=== PATIENT | male | born 1960 | race Caucasian/White ===

== ENCOUNTER 2017-09-26 13:11 | Outpatient (CLI) | payer OTHER ==
[2017-09-26 14:16] LABS: Hematocrit 41.9 % (42.0-52.0); Mean Platelet Volume 7.7 fL (7.4-10.4); Red Blood Cell (RBC) Count 4.35 mill/uL (4.70-6.10); White Blood Cell (WBC) Count 7.8 thou/uL (4.8-10.8)
[2017-09-26 14:38] LABS: Anion Gap 11 mmol/L (10-20); BUN (Urea Nitrogen) 15 mg/dL (8.4-25.7); Calc. Creatinine Clearance 0 mL/min (70-130); Carbon Dioxide 27 mmol/L (22-29); Chloride 108 mmol/L (98-107); Estimated GFR-MDRD 75
== END 2017-09-26 13:12 | disposition home or self-care (01) ==
LOC: LABBT 13:11
PROVIDERS: ATTEND Neurological Surgery
DX: Z01.818 Encounter for other preprocedural examination (principal); M54.12 Radiculopathy, cervical region
CPT/HCPCS: 80048; 85027; 93005; 93010

== ENCOUNTER 2017-10-02 06:41 | Day surgery (SDC) | payer OTHER ==
[2017-09-26 13:29] VITALS: BMI 38.3
[2017-10-02] MEDS ORDERED: CEFAZOLIN/Water 2 GM/20 ML SYRINGE ONE (07:16)
[2017-10-02] MEDS ORDERED: Fentanyl 100 MCG/2 ML VIAL ONE ×4 (07:33→09:31)
[2017-10-02] MEDS ORDERED: Midazolam HCl 2 mg/2 ml Vial ONE (07:33)
[2017-10-02] MEDS ORDERED: Sodium Chloride 0.9% 10 ML ONE (07:38)
--- NOTE | 2017-10-02 09:16 | OP ---
DATE OF PROCEDURE: 10/02/2017 SURGEON: Jaylan Torres SENIOR PRODUCT ENGINEER: Bolivar Garces PA-C PROCEDURE: Anterior cervical discectomy C5-6, interbody arthrodesis, intravertebral biomechanical de vice, local morselized autograft, demineralized bone matrix, anterior titanium instrumentation C5-6. PROCEDURE IN DETAIL: The patient was brought into the operating room, intubated. He was positioned supine with the head in modest extension on a gel-filled donut. Incision was made in the right prece rvical area and dissecting medial to the sternocleidomastoid muscle. We identified the anterior cerv ical spine and our level was confirmed by x-ray. We debrided anterior osteophytes, placed distractio n across the disc space. Using the operating microscope and microdissection techniques, completely r emoved the intravertebral disc till the level of the dura. After complete decompression had been sec ured, the bony endplates were decorticated for the purpose of arthrodesis and appropriately sized int ravertebral biomechanical PEEK device was brought into the field, filled with demineralized bone matr ix and local morselized autograft, and tapped into place securely at C5-6. Next, an anterior plate w as brought in the field and secured to C5, and C6 using two 14 mm screws at each level. The wound wa s then extensively irrigated, immaculate hemostasis was secured, and the wound was closed in anatomic layers.
[2017-10-02] MEDS ORDERED: HYDROcodone/Acetaminophen 5/325 mg Tablet ONE (10:39)
[2017-10-02] MEDS ORDERED: Ondansetron HCl/PF 4 MG/2 ML Vial ONE (14:34)
[2017-10-02] MEDS ORDERED: Lidocaine 1% PF 5 ML VIAL ONE (14:34)
[2017-10-02] MEDS ORDERED: Glycopyrrolate 0.2 MG/ML 5 ML SYRINGE ONE ×2 (14:34)
[2017-10-02] MEDS ORDERED: Propofol 200 MG/20 ML VIAL ONE (14:34)
[2017-10-02] MEDS ORDERED: Ketorolac Tromethamine 30 MG/ML VIAL ONE ×2 (14:34)
== END 2017-10-02 11:20 | disposition home or self-care (01) ==
LOC: SDC 06:41
PROVIDERS: ATTEND Neurological Surgery
PROC: 0RG10A0 Fusion of Cervical Vertebral Joint with Interbody Fusion Device, Anterior Approach, Anterior Column, Open Approach (ICD-10-PCS; principal; 2017-10-02)
DX: M54.12 Radiculopathy, cervical region (principal); F32.9 Major depressive disorder, single episode, unspecified; I10 Essential (primary) hypertension; F41.9 Anxiety disorder, unspecified; Z79.1 Long term (current) use of non-steroidal anti-inflammatories (NSAID); Z79.899 Other long term (current) drug therapy; Z88.2 Allergy status to sulfonamides; Z88.8 Allergy status to other drugs, medicaments and biological substances; Z98.890 Other specified postprocedural states; Z87.442 Personal history of urinary calculi
CPT/HCPCS: 76001; 96374; A4216; C1713; J1885; J2001; J2250; J2405; J2704; J3010; J3490

== ENCOUNTER 2022-01-13 10:51 | Outpatient (CLI) | payer OTHER | END 2022-01-13 10:52 | disposition home or self-care (01) | LOC: TBSIIMAG 10:51 | PROVIDERS: ATTEND Neurological Surgery | DX: M48.062 Spinal stenosis, lumbar region with neurogenic claudication (principal); M47.816 Spondylosis without myelopathy or radiculopathy, lumbar region | CPT/HCPCS: 72148 ==